=== PATIENT | male | born 1990 | race Caucasian/White ===

== ENCOUNTER 2017-01-09 08:33 | Emergency (ER) | payer OTHER, BC ==
[~2017-01-09] VITALS: Ht 167.6 cm; Wt 56.7 kg
[~2017-01-09 08:33] MED LIST: PRED20TA PO
[2017-01-09 08:41] VITALS: BP 160/80
[2017-01-09] MEDS ORDERED: FLUORESCEIN OPHTH 1 MG STRIP OD ONE (09:15)
[2017-01-09] MEDS ORDERED: TETRACAINE 0.5% OPHTH SOLN 4ML OD ONE (09:15)
[2017-01-09] MEDS ORDERED: OFLO3OPSO OD (09:19)
== END 2017-01-09 09:29 | disposition home or self-care (01) ==
LOC: M ED 09:24
DX: S05.01XA Injury of conjunctiva and corneal abrasion without foreign body, right eye, initial encounter (principal); W26.2XXA Contact with edge of stiff paper, initial encounter; Y92.89 Other specified places as the place of occurrence of the external cause; Y93.89 Activity, other specified; Y99.0 Civilian activity done for income or pay

== ENCOUNTER 2017-08-10 14:04 | Emergency (ER) | payer BC, OTHER ==
[~2017-08-10] VITALS: Ht 167.6 cm; Wt 56.8 kg
[~2017-08-10 14:04] MED LIST changes: +OFLO3OPSO OD
[2017-08-10] MEDS ORDERED: TETRACAINE 0.5% OPHTH SOLN 4ML OD ONE (16:30)
[2017-08-10] MEDS ORDERED: FLUORESCEIN OPHTH 1 MG STRIP OD ONE (16:30)
[2017-08-10] MEDS ORDERED: ERYTHROMYCIN OPHTH OINT OD ONE (16:45)
[2017-08-10 16:55] VITALS: BP 124/87
== END 2017-08-10 16:56 | disposition home or self-care (01) ==
LOC: M ED 14:04
DX: S05.01XA Injury of conjunctiva and corneal abrasion without foreign body, right eye, initial encounter (principal); X58.XXXA Exposure to other specified factors, initial encounter; Y92.89 Other specified places as the place of occurrence of the external cause; Y93.89 Activity, other specified; Y99.8 Other external cause status; F17.210 Nicotine dependence, cigarettes, uncomplicated; Z88.2 Allergy status to sulfonamides; Z88.1 Allergy status to other antibiotic agents

== ENCOUNTER 2022-02-09 14:52 | Emergency (ER) | payer OTHER, SELFPAY ==
[~2022-02-09] VITALS: Ht 167.6 cm; Wt 56.8 kg
[2022-02-09 15:31] LABS: BASO % 0.2 % (0.0-1.0); EOS # 0.1 10^3/uL (0.0-0.5); EOS % 2.1 % (0.0-3.0); HEMATOCRIT 39.2 % (42.0-52.0); HEMOGLOBIN 13.9 g/dl (13.5-17.5); LYMPH # 1.7 10^3/uL (1.5-5.0); LYMPH % 40.4 % (24.0-44.0); MEAN CORPUSCULAR HEMOGLOBIN 31.1 pg (27.0-33.0); MEAN CORPUSCULAR HGB CONC 35.5 g/dl (32.0-36.5); MEAN CORPUSCULAR VOLUME 87.7 fl (80.0-96.0); MONO # 0.4 10^3/uL (0.0-0.8); MONO % 8.9 % (2.0-8.0); NEUTROPHILS # 2.1 10^3/uL (1.5-8.5); NEUTROPHILS % 48.2 % (36.0-66.0); PLATELET COUNT, AUTOMATED 205 10^3/uL (150-450); RED BLOOD COUNT 4.47 10^6/uL (4.30-6.10); WHITE BLOOD COUNT 4.3 10^3/uL (4.0-10.0)
[2022-02-09] MEDS ORDERED: NS 1,000 ML IV ONE (15:45)
[2022-02-09 16:06] LABS: CK-MB VALUE MASS < 1.0 NG/ML (<3.6); CPK CREATINE PHOSPHOKINASE 108 U/L (39-308); MB/CK RELATIVE INDEX 0.93 (< OR =4)
[2022-02-09 16:12] LABS: BLOOD UREA NITROGEN 8 MG/DL (7-18); CALCIUM LEVEL 8.9 MG/DL (8.5-10.1); CARBON DIOXIDE LEVEL 30 MEQ/L (21-32); CHLORIDE LEVEL 106 MEQ/L (98-107); CREATININE FOR GFR 0.82 MG/DL (0.70-1.30); GLOMERULAR FILTRATION RATE > 60.0 (>60); GLUCOSE, FASTING 117 MG/DL (70-100); POTASSIUM SERUM 3.9 MEQ/L (3.5-5.1); SODIUM LEVEL 139 MEQ/L (136-145); THYROID STIMULATING HORMONE 0.821 uIU/ML (0.358-3.740)
[2022-02-09 17:08] LABS: AMPHETAMINES LEVEL URINE NEGATIVE (NEGATIVE); BARBITURATES URINE NEGATIVE (NEGATIVE); BENZODIAZEPINES URINE NEGATIVE (NEGATIVE); CANNABINOIDS URINE POSITIVE (NEGATIVE); COCAINE METABOLITE URINE NEGATIVE (NEGATIVE); METHADONE URINE NEGATIVE (NEGATIVE); OPIATES URINE NEGATIVE (NEGATIVE); PHENCYCLIDINE URINE NEGATIVE (NEGATIVE)
[2022-02-09 17:49] VITALS: BP 122/58
== END 2022-02-09 18:22 | disposition home or self-care (01) ==
LOC: M ED 14:52 → EDBD 14:52 → M ED 18:22
DX: R55 Syncope and collapse (principal); Z88.1 Allergy status to other antibiotic agents; Z88.2 Allergy status to sulfonamides; Z88.8 Allergy status to other drugs, medicaments and biological substances

== ENCOUNTER 2023-05-30 07:21 | Emergency (ER) | payer OTHER, SELFPAY ==
[~2023-05-30] VITALS: Ht 167.6 cm; Wt 61.0 kg
[~2023-05-30 07:21] MED LIST changes: -OFLO3OPSO OD; +OFLO5DRO OD
[2023-05-30] MEDS ORDERED: ONDANSETRON 4MG ORAL DISINTEGRATING TAB PO ONE (08:35)
[2023-05-30] MEDS ORDERED: ACETAMINOPHEN 500 MG TAB PO ONE (08:35)
[2023-05-30 08:47] VITALS: BP 122/83; TEMP 98.6; O2SAT 98
== END 2023-05-30 08:54 | disposition home or self-care (01) ==
LOC: M ED 07:21
DX: S09.90XA Unspecified injury of head, initial encounter (principal); W22.8XXA Striking against or struck by other objects, initial encounter; Y92.89 Other specified places as the place of occurrence of the external cause; Y93.89 Activity, other specified; Y99.0 Civilian activity done for income or pay; R51.9 Headache, unspecified; R11.0 Nausea; F17.200 Nicotine dependence, unspecified, uncomplicated